=== PATIENT | male | born 1990 | race Caucasian/White ===

== ENCOUNTER 2018-01-17 09:28 | Emergency (ER) | payer SELFPAY ==
[2018-01-17 09:57] LABS: #Lymphocytes 0.9 thou/uL (1.20-3.40); #Monocytes 0.5 thou/uL (0.11-0.59); #Neutrophils 9.1 thou/uL (1.40-6.50); %Basophils 0.2 % (0.0-1.0); %Eosinophils 0.3 % (0.0-10.0); %Lymphocytes 8.3 % (21.0-51.0); %Monocytes 4.5 % (0.0-10.0); %Neutrophils 86.7 % (42.0-75.0); Hemoglobin 16.9 g/dL (14.0-18.0); Mean Corpuscular HGB CONC 34.4 g/dL (32.0-36.0); Mean Corpuscular Hemoglobin 31.1 pg (27.0-31.0); Mean Corpuscular Volume 90.6 fl (80.0-94.0); Mean Platelet Volume 7.2 fL (7.4-10.4); Platelet Count 267 thou/uL (130-400); RBC Distribution Width 11.7 % (11.5-14.5); Red Blood Cell (RBC) Count 5.44 mill/uL (4.70-6.10); White Blood Cell (WBC) Count 10.5 thou/uL (4.8-10.8)
[2018-01-17 10:18] LABS: ALT (SGPT) 18 U/L (8-55); AST (SGOT) 21 U/L (5-34); Albumin 4.7 g/dL (3.5-5.0); Alkaline Phosphatase 96 U/L (40-150); Anion Gap 15 mmol/L (10-20); BUN (Urea Nitrogen) 19 mg/dL (8.9-20.6); Bilirubin, Total 1.1 mg/dL (0.2-1.2); Calc. Creatinine Clearance 0 mL/min (70-130); Calcium 9.6 mg/dL (7.8-10.44); Carbon Dioxide 24 mmol/L (22-29); Chloride 103 mmol/L (98-107); Estimated GFR-MDRD 61; Globulin 2.7 g/dL (2.4-3.5); Glucose 134 mg/dL (70-105); Lipase 33 U/L (8-78); Potassium 3.8 mmol/L (3.5-5.1); Protein, Total 7.4 g/dL (6.0-8.3); Sodium 138 mmol/L (136-145)
[2018-01-17] MEDS ORDERED: Ondansetron HCl/PF 4 MG/2 ML Vial ONE (11:56)
[2018-01-17] MEDS ORDERED: Fentanyl 100 MCG/2 ML VIAL ONE (12:11)
--- NOTE | 2018-01-17 12:42 | CT ---
CONTRAST ENHANCED CT OF THE ABDOMEN AND PELVIS: History: Abdominal pain. IV contrast was given. Technique: Contrast enhanced CT images of the abdomen and pelvis were performed. Unfortunately, oral contrast was not given. FINDINGS: The lung bases are unremarkable. No evidence of free intraperitoneal air is seen. The liver, spleen, gallbladder, pancreas, adrenal glands, and kidneys are unremarkable. Cortical cyst s seen in the lower pole of the right kidney. A normal appendix is visualized. Loops of small bowel and colon are not significantly dilated. No evidence of periaortic or mesenteric lymphadenopathy is seen. No evidence of abdominal hernia is seen. IMPRESSION: Normal CT images of the abdomen and pelvis. POS: [facility]
[2018-01-17 13:20] LABS: Bilirubin Negative (Negative); Blood, Urine Negative (Negative); Clarity CLEAR (Clear); Glucose, Urine (Dipstick) Negative (Negative); Leukocyte Negative (Negative); Nitrite Negative (Negative); Protein, Urine (Dipstick) 30 mg/dL (Neg-Trace); pH, Urine 8.5 (5.0-9.0)
[2018-01-17 13:23] LABS: Bacteria/HPF None Seen HPF (None Seen); Hyaline Casts/LPF 0-3 HYALINE CAST LPF (0-3 Hyaline); RBC/HPF None Seen HPF (0-3); Squamous Epithelial None Seen HPF (0-3); WBC/HPF None Seen HPF (0-3)
[2018-01-17 13:25] LABS: Specific Gravity, Urine Greater than 1.060 (1.002-1.036)
[2018-01-17] MEDS ORDERED: ISOVUE-370 76%-LOCM 1 ML ONE (16:19)
== END 2018-01-17 16:02 | disposition home or self-care (01) ==
LOC: ERS 09:28
DX: T62.91XA Toxic effect of unspecified noxious substance eaten as food, accidental (unintentional), initial encounter (principal)
CPT/HCPCS: 36415; 74177; 80053; 81003; 81015; 83690; 85025; 96361; 96374; 96375; J2405; J3010